=== PATIENT | female | born 1935 | race Caucasian/White ===

== ENCOUNTER 2018-10-20 11:49 | Day surgery (SDC) | payer MEDICARE ==
[~2018-10-20] VITALS: Ht 12.7 cm; Wt 60.8 kg
[~2018-10-20 11:49] MED LIST: ALEN70 PO; ALPR.5 PO; ASCO500 PO; ASPI325 PO; ASPI81EC; ATEN25; ATEN25 PO; Amlodipine-Ben1 EAC1 PO; Biotin10 MG PO; CALCAVITDA PO; CALCIUM 500-VI1 EAC1 PO; DULO30 PO; Glucosamine &1 EACH PO; HYDACE5 PO; HYDACE5325 PO; HYDCHL25 PO; HYDRA25; LORA.5 PO; MULVITMINF PO; Multiple Vitam1 EACH PO; OMEP20ER; SPIHYD PO; TOCO1000 PO; TOCO400 PO; TRAM50 PO; UBID10 PO
== END 2018-10-20 14:11 | disposition home or self-care (01) ==
LOC: ORSCSDS 11:49
PROVIDERS: Surgery
PROC: 0DB68ZX Excision of Stomach, Via Natural or Artificial Opening Endoscopic, Diagnostic (ICD-10-PCS; principal; 2018-10-20 13:00)
PROC: 0DB58ZX Excision of Esophagus, Via Natural or Artificial Opening Endoscopic, Diagnostic (ICD-10-PCS; principal; 2018-10-20 13:00)
PROC: 0DB98ZX Excision of Duodenum, Via Natural or Artificial Opening Endoscopic, Diagnostic (ICD-10-PCS; principal; 2018-10-20 13:00)
DX: R10.13 Epigastric pain (principal); R10.9 Unspecified abdominal pain; I10 Essential (primary) hypertension; J44.9 Chronic obstructive pulmonary disease, unspecified; K21.9 Gastro-esophageal reflux disease without esophagitis; Z79.82 Long term (current) use of aspirin; Z79.899 Other long term (current) drug therapy
CPT/HCPCS: 88305; 88342; J7120

== ENCOUNTER 2018-11-27 06:11 | Day surgery (SDC) | payer MEDICARE ==
[~2018-11-27] VITALS: Ht 162.6 cm; Wt 59.4 kg
[~2018-11-27 06:11] MED LIST changes: +ASPI81CH PO; -ASPI81EC; -ATEN25
--- NOTE | 2018-11-27 06:26 | NUR ---
INTO [facility] AMBULATORY. History, Chart, Medications and Allergies reviewed before start of procedure.Lungs clear T/O to Auscultation. Patient States Post-Procedure ride home has been arranged.
--- NOTE | 2018-11-27 11:56 | NUR ---
Patient up to Ambulate independently. Gait steady. Discharge instructions reviewed with patient. Patient verbalizes understanding. Copy given to patient to take home. Patient States Post-Procedure ride home has been arranged. Discharged via wheelchair to private car for ride home.
== END 2018-11-27 12:00 | disposition home or self-care (01) ==
LOC: ORSCMMR 06:11 → ORD 07:30 → ORSCMMR 07:30
PROVIDERS: Surgery
PROC: 0YU64JZ Supplement Left Inguinal Region with Synthetic Substitute, Percutaneous Endoscopic Approach (ICD-10-PCS; principal; 2018-11-27 07:30)
PROC: 8E0W4CZ Robotic Assisted Procedure of Trunk Region, Percutaneous Endoscopic Approach (ICD-10-PCS; principal; 2018-11-27 07:30)
DX: K40.90 Unilateral inguinal hernia, without obstruction or gangrene, not specified as recurrent (principal); I10 Essential (primary) hypertension; J44.9 Chronic obstructive pulmonary disease, unspecified; Z79.899 Other long term (current) drug therapy
CPT/HCPCS: 49650; S2900; C1781; J0690; J1100; J1885; J2250; J2370; J2405; J2710; J2765; J3010; J7120

== ENCOUNTER → 2018-12-08 | Outpatient (CLI) | payer MEDICARE ==
[2018-12-08 10:10] LABS: Source, Urine Clean Catch
[2018-12-08 10:28] LABS: Bilirubin, Urine Neg (Neg); Blood, Urine 2+ (Neg); Glucose Qualitative, Urine Neg (Neg); Ketones, Urine Neg (Neg); Leukocyte Esterase, Urine 3+ (Neg); Nitrite, Urine Neg (Neg); Protein, Urine 2+ (Neg); Urobilinogen, Urine NORM (Normal)
[2018-12-08 10:38] LABS: Appearance, Urine Hazy (Clear); Bacteria Few /hpf; Color, Urine Yellow (P-Yellow); Squamous Epithelial Cells Few /hpf (Few); White Blood Cells, Urine TNTC /hpf (0-5)
== END | disposition home or self-care (01) ==
LOC: LAB SHORT 10:07 → LAB 10:07
PROVIDERS: Surgery
DX: N23 Unspecified renal colic (principal); R39.89 Other symptoms and signs involving the genitourinary system
CPT/HCPCS: 81001; 87077; 87086; 87186

== ENCOUNTER → 2019-02-19 | Outpatient (CLI) | payer MEDICARE | END | disposition home or self-care (01) | LOC: LAB SHORT 10:49 → LAB EV 10:49 | DX: J02.9 Acute pharyngitis, unspecified (principal) | CPT/HCPCS: 87081 ==

== ENCOUNTER 2019-04-29 06:38 | Day surgery (SDC) | payer MEDICARE ==
[~2019-04-29] VITALS: Ht 160 cm; Wt 60.2 kg
--- NOTE | 2019-04-29 08:48 | NUR ---
04/29/19 0848 Ana Pedraza 10ML NORMAL SALINE USED TO ELEVATE GASTRIC MUCOSA
== END 2019-04-29 09:16 | disposition home or self-care (01) ==
LOC: ORSCSDS 06:38
PROVIDERS: Internal Medicine Gastroenterology
PROC: 0DB68ZX Excision of Stomach, Via Natural or Artificial Opening Endoscopic, Diagnostic (ICD-10-PCS; principal; 2019-04-29 08:00)
DX: K31.9 Disease of stomach and duodenum, unspecified (principal); R10.13 Epigastric pain; K31.7 Polyp of stomach and duodenum; K44.9 Diaphragmatic hernia without obstruction or gangrene; I10 Essential (primary) hypertension; J43.9 Emphysema, unspecified; Z79.899 Other long term (current) drug therapy; Z79.82 Long term (current) use of aspirin
CPT/HCPCS: 88305; J2405; J2704; J7120

== ENCOUNTER 2020-06-13 09:30 | Day surgery (SDC) | payer MEDICARE ==
[~2020-06-13] VITALS: Ht 160 cm; Wt 61.9 kg
[~2020-06-13 09:30] MED LIST changes: +ACET500 PO; +AMLO5 PO
--- NOTE | 2020-06-13 11:03 | NUR ---
INTO [facility] ADMISSION STARTED. Ambulatory in Day Surgery History, Chart, Medications and Allergies reviewed before start of procedure.Lungs clear T/O to Auscultation. Patient confirms NPO status and agrees with scheduled surgery.
--- NOTE | 2020-06-13 12:48 | NUR ---
INTO BATHROOM AT THIS TIME WHERE PATIENT REPORTS SHE VOIDED.
--- NOTE | 2020-06-13 16:28 | NUR ---
RECEIVED REPORT FROM THADDEUS ELIZONDO RN. PT AWAKE AND ORIENTED. DECREASED ANXIETY WITH PAIN PILLS AND ABLE TO USE BSC. SON AT BEDSIDE. REPORT TO JACI VALENZUELA. PT RECEIVED A TOTAL OF TWO PERCOCET. SONU PO. TOLERATED ACTIVITY. Discharge instructions reviewed with patient. Patient verbalizes understanding. Copy given to patient to take home.
--- NOTE | 2020-06-13 16:54 | NUR ---
ASSUMED CARE AT 1630 DISCHARGED AT 1650. Discharge instructions reviewed with patient. Patient verbalizes understanding. Copy given to patient to take home. Patient States Post-Procedure ride home has been arranged. Discharged via wheelchair to private car for ride home.
== END 2020-06-13 22:46 | disposition home or self-care (01) ==
LOC: ORSCMMR 09:30 → ORD 10:15 → ORSCMMR 11:00
PROVIDERS: Orthopaedic Surgery
PROC: 0SBD4ZZ Excision of Left Knee Joint, Percutaneous Endoscopic Approach (ICD-10-PCS; principal; 2020-06-13 13:15)
PROC: 0SQD4ZZ Repair Left Knee Joint, Percutaneous Endoscopic Approach (ICD-10-PCS; principal; 2020-06-13 13:15)
DX: S82.145A Nondisplaced bicondylar fracture of left tibia, initial encounter for closed fracture (principal); M17.12 Unilateral primary osteoarthritis, left knee; S83.242A Other tear of medial meniscus, current injury, left knee, initial encounter; I10 Essential (primary) hypertension; J44.9 Chronic obstructive pulmonary disease, unspecified; K21.9 Gastro-esophageal reflux disease without esophagitis; F41.9 Anxiety disorder, unspecified; Z79.899 Other long term (current) drug therapy
CPT/HCPCS: 73560-LT; C1713; J0171; J0690; J1100; J2405; J2704; J3010; J7120

== ENCOUNTER 2020-10-31 06:08 | Day surgery (SDC) | payer MEDICARE ==
[~2020-10-31] VITALS: Ht 160 cm; Wt 62.0 kg
--- NOTE | 2020-10-31 07:12 | NUR ---
Ambulatory in Day Surgery Surgical site prepped with 2% Chlorhexidine cloth wipe. Tristen Paws warming gown applied. History, Chart, Medications and Allergies reviewed before start of procedure.Lungs clear T/O to Auscultation. Patient confirms NPO status and agrees with scheduled surgery. Pre-Op teaching done. Pt verbalizes understanding. Patient States Post-Procedure ride home has been arranged. Patient reports completing Chlorhexadine shower X2 prior to admission to hospital.
--- NOTE | 2020-10-31 15:56 | NUR ---
Patient is sitting on a chair and alert. Patient talks about her knee issues and surgery and about the of her . Patient also talks about her two sons and thier families. I listen empathically and provide grief support, pastoral travel counselor and prayer. Patient responds well and shows signs of an elevated mood.
--- NOTE | 2020-10-31 18:36 | NUR ---
SHIFT SUMMARY PT A&OX4, VSS, S/P L TKA, AQUACEL AND JW WRAP CDI. PAIN MANAGED WITH OXYCODONE, TYLENOL AND TORADOL. AMBULATES WITH FWW/GB TO BRP AND IN HALLWAY; UP TO CHAIR, LEGS ELEVATED, POLAR ELIZABETH/TEDS/SCDS ON. SONU PO. VOIDING WELL. WILL REPORT TO ONCOMING NOEMÍ VALENZUELA.
--- NOTE | 2020-11-01 03:41 | NUR ---
SHIFT SUMMARY: NAS IS A&OX4. VSS, NO ACUTE EVENTS OVERNIGHT. SHE IS A ONE PERSON ASSIST TO THE BATHROOM AND HALLWAY REQUIRING VERBAL CUES, USING THE GAIT BELT AND FWW. IV TO L AC PATENT. SHE IS TOLERATING PO INTAKE WELL. IRAM HOSE, SCDs, AND POLAR PACK IN PLACE. NO DIFFICULTY VOIDING. SHE IS LYING IN THE RECLINER WITH HER CALL LIGHT IN REACH. SHE IS ABLE TO MAKE HER NEEDS KNOWN. WILL REPORT TO DAY SHIFT RN.
[2020-11-01 05:46] LABS: BASOPHILS ABSOLUTE AUTO 0.02 K/mm3 (0.00-0.23); BASOPHILS PERCENT AUTO 0 % (0-2); EOSINOPHILS PERCENT AUTO 0 % (0-6); Hematocrit 35.4 % (33.0-51.0); Hemoglobin 11.6 g/dL (11.5-16.0); IMMATURE GRAN ABSOLUTE AUTO 0.06 K/mm3 (0.00-0.10); IMMATURE GRAN PERCENT AUTO 1 % (0-1); LYMPHOCYTES ABSOLUTE AUTO 2.25 K/mm3 (0.84-5.20); LYMPHOCYTES PERCENT AUTO 17 % (21-46); MONOCYTES ABSOLUTE AUTO 1.38 K/mm3 (0.16-1.47); MONOCYTES PERCENT AUTO 11 % (4-13); Mean Corpuscular HGB Conc 32.8 g/dL (31.5-36.5); Mean Corpuscular Volume 92 fL (80-100); Mean Platelet Volume 9.1 fL (9.1-12.4); NEUTROPHILS ABSOLUTE AUTO 9.36 K/mm3 (1.96-9.15); NEUTROPHILS PERCENT AUTO 72 % (41-73); Platelet Count 267 K/mm3 (150-400); RDW Coefficient Variation 13.2 % (11.7-14.2); RDW Standard Deviation 44.5 fL (35.1-46.3); Red Blood Cell Count 3.87 M/mm3 (3.80-5.20); White Blood Cell Count 13.07 K/mm3 (4.00-11.30)
[2020-11-01 06:11] LABS: Anion Gap 7 mmol/L (6-16); Blood Urea Nitrogen 20 mg/dL (8-24); Bun/Creatinine Ratio 23.6 (12.0-20.0); CO2, Blood 29 mmol/L (21-32); Calcium, Blood 8.7 mg/dL (8.5-10.1); Chloride, Blood 96 mmol/L (98-108); Creatinine, Blood 0.85 mg/dL (0.40-1.00); Glomerular Filtration Rate >60 (60-); Glucose, Blood 102 mg/dL (70-99); Potassium, Blood 3.3 mmol/L (3.5-5.5); Sodium, Blood 132 mmol/L (136-145)
[2020-11-01] MEDS ORDERED: Percocet 5-3251 EACH PO (08:28)
[2020-11-01] MEDS ORDERED: Aspirin EC81 MG PO (08:29)
--- NOTE | 2020-11-01 13:25 | NUR ---
DISCHARGED CLEARED THERAPY. DC'D IV, CATHETER INTACT. REVIEWED DC PAPERWORK/ PT VERBALIZED UNDERSTANDING. LEFT UNIT IN WC W/POSSESSIONS, AQUACEL, POLAR PACK, PRESCRIPTIONS AND DC PAPERWORK IN HAND ACCOMPANIED BY SON. LEFT AT APPROXIMATELY 1135.
== END 2020-11-01 11:35 | disposition home or self-care (01) ==
LOC: ORSCMMR 06:08 → ORD 07:30 → ORSCMMR 07:30 → ORD 09:30 → SURS 10:35 → ORSCMMR 11-01 11:35 → SURS 11-01 11:35
PROVIDERS: Orthopaedic Surgery
PROC: 8E0Y0CZ Robotic Assisted Procedure of Lower Extremity, Open Approach (ICD-10-PCS; principal; 2020-10-31 07:30)
PROC: 0SRD0JA Replacement of Left Knee Joint with Synthetic Substitute, Uncemented, Open Approach (ICD-10-PCS; principal; 2020-10-31 07:30)
DX: M17.12 Unilateral primary osteoarthritis, left knee (principal); I10 Essential (primary) hypertension; J44.9 Chronic obstructive pulmonary disease, unspecified; K21.9 Gastro-esophageal reflux disease without esophagitis; Z79.82 Long term (current) use of aspirin; Z79.899 Other long term (current) drug therapy; Z87.891 Personal history of nicotine dependence
CPT/HCPCS: 27447; S2900; 36415; 73560-LT; 80048; 85025; 88300; 97110; 97116; 97162; A9270; C1776; J0171; J0690; J0735; J1100; J1885; J2250; J2370; J2405; J2704; J2795; J3010; J7120

== ENCOUNTER 2021-01-24 14:52 | Emergency (ER) | payer MEDICARE ==
[~2021-01-24] VITALS: Ht 160 cm; Wt 60.3 kg
[~2021-01-24 14:52] MED LIST changes: +Aspirin EC81 MG PO; +Percocet 5-3251 EACH PO
[2021-01-24 15:35] LABS: BASOPHILS ABSOLUTE AUTO 0.02 K/mm3 (0.00-0.23); BASOPHILS PERCENT AUTO 0 % (0-2); EOSINOPHILS ABSOLUTE AUTO 0.01 K/mm3 (0.00-0.68); EOSINOPHILS PERCENT AUTO 0 % (0-6); Hematocrit 38.4 % (33.0-51.0); Hemoglobin 12.4 g/dL (11.5-16.0); IMMATURE GRAN ABSOLUTE AUTO 0.03 K/mm3 (0.00-0.10); IMMATURE GRAN PERCENT AUTO 0 % (0-1); LYMPHOCYTES ABSOLUTE AUTO 2.37 K/mm3 (0.84-5.20); LYMPHOCYTES PERCENT AUTO 26 % (21-46); MONOCYTES ABSOLUTE AUTO 0.95 K/mm3 (0.16-1.47); MONOCYTES PERCENT AUTO 11 % (4-13); Mean Corpuscular HGB 27.3 pg (26.0-34.0); Mean Corpuscular HGB Conc 32.3 g/dL (31.5-36.5); Mean Corpuscular Volume 84 fL (80-100); Mean Platelet Volume 8.6 fL (9.1-12.4); NEUTROPHILS ABSOLUTE AUTO 5.71 K/mm3 (1.96-9.15); NEUTROPHILS PERCENT AUTO 63 % (41-73); Platelet Count 332 K/mm3 (150-400); RDW Coefficient Variation 14.1 % (11.7-14.2); RDW Standard Deviation 43.9 fL (35.1-46.3); Red Blood Cell Count 4.55 M/mm3 (3.80-5.20); White Blood Cell Count 9.09 K/mm3 (4.00-11.30)
[2021-01-24 16:05] LABS: Alanine Aminotransfer (ALT/SGP 28 U/L (12-78); Albumin, Blood 3.9 g/dL (3.4-5.0); Alk Phos 90 U/L (50-136); Anion Gap 9 mmol/L (6-16); Aspartate Aminotrans (AST/SGOT 22 U/L (12-37); Bilirubin, Total 0.4 mg/dL (0.1-1.0); Blood Urea Nitrogen 19 mg/dL (8-24); Bun/Creatinine Ratio 25.4 (12.0-20.0); CO2, Blood 24 mmol/L (21-32); Calcium, Blood 9.1 mg/dL (8.5-10.1); Chloride, Blood 91 mmol/L (98-108); Creatinine, Blood 0.75 mg/dL (0.40-1.00); Globulin, Blood 4.1 g/dL (2.2-4.0); Glomerular Filtration Rate >60 (60-); Glucose, Blood 98 mg/dL (70-99); Potassium, Blood 3.9 mmol/L (3.5-5.5); Sodium, Blood 124 mmol/L (136-145); Troponin I <0.015 ng/mL (0.000-0.040)
[2021-01-24] MEDS ORDERED: VENL37.5 PO (18:15)
== END 2021-01-24 19:40 | disposition home or self-care (01) ==
LOC: ER 14:52
PROVIDERS: Physician Assistant
DX: F41.9 Anxiety disorder, unspecified (principal); F32.9 Major depressive disorder, single episode, unspecified; Z79.899 Other long term (current) drug therapy; Z79.82 Long term (current) use of aspirin; Z88.1 Allergy status to other antibiotic agents; Z88.8 Allergy status to other drugs, medicaments and biological substances
CPT/HCPCS: 36415; 71046; 80053; 84443; 84484; 85025; 93005; 93010; 99284-25; A9270

== ENCOUNTER → 2021-08-09 | Outpatient (CLI) | payer MEDICARE ==
[~2021-08-09] MED LIST changes: +VENL37.5 PO
== END ==
LOC: LAB 08:04 → LAB SHORT 08:04
DX: N39.0 Urinary tract infection, site not specified (principal)
CPT/HCPCS: 87077; 87086; 87186

== ENCOUNTER → 2022-04-08 | Outpatient (CLI) | payer MEDICARE | END | disposition home or self-care (01) | LOC: LAB SHORT 14:31 → LAB 14:31 | DX: L01.00 Impetigo, unspecified (principal) | CPT/HCPCS: 87070 ==

== ENCOUNTER 2023-08-04 03:15 | Emergency (ER) | payer OTHER, MEDICARE ==
[~2023-08-04] VITALS: Ht 160 cm; Wt 58.1 kg
[2023-08-04 04:47] VITALS: BP 146/73
== END 2023-08-04 06:27 | disposition home or self-care (01) ==
LOC: ER 03:15
DX: S51.811A Laceration without foreign body of right forearm, initial encounter (principal); S00.01XA Abrasion of scalp, initial encounter; S00.03XA Contusion of scalp, initial encounter; W01.190A Fall on same level from slipping, tripping and stumbling with subsequent striking against furniture, initial encounter; I10 Essential (primary) hypertension; F41.9 Anxiety disorder, unspecified; F32.A Depression, unspecified; Z88.8 Allergy status to other drugs, medicaments and biological substances; Z88.1 Allergy status to other antibiotic agents; Z79.899 Other long term (current) drug therapy; Z79.82 Long term (current) use of aspirin
CPT/HCPCS: 70450; 99283-25; A9270

== ENCOUNTER 2023-09-16 07:57 | Emergency (ER) | payer MEDICARE ==
[~2023-09-16] VITALS: Ht 160 cm; Wt 56.7 kg
[2023-09-16] MEDS ORDERED: Norco 10-325 T1 EACH PO (09:46)
[2023-09-16 10:00] VITALS: BP 118/65
== END 2023-09-16 10:11 | disposition home or self-care (01) ==
LOC: ER 07:57
DX: R10.84 Generalized abdominal pain (principal); I10 Essential (primary) hypertension; K21.9 Gastro-esophageal reflux disease without esophagitis; J44.9 Chronic obstructive pulmonary disease, unspecified; M85.80 Other specified disorders of bone density and structure, unspecified site; Z79.899 Other long term (current) drug therapy; Z88.1 Allergy status to other antibiotic agents; Z88.8 Allergy status to other drugs, medicaments and biological substances
CPT/HCPCS: 99283

== ENCOUNTER → 2023-09-19 | Outpatient (CLI) | payer MEDICARE ==
[~2023-09-19] MED LIST changes: +Norco 10-325 T1 EACH PO
== END | disposition home or self-care (01) ==
LOC: LAB SHORT 13:30 → LAB 13:30
DX: N30.00 Acute cystitis without hematuria (principal)
CPT/HCPCS: 87077; 87086; 87186